=== PATIENT | female | born 1965 | race Caucasian/White ===

== ENCOUNTER → 2021-04-05 00:01 | Outpatient (BNVA) | payer SELFPAY | PROVIDERS: PCP Family Medicine; Visit Provider Family Medicine | DX: L02.419 Cutaneous abscess of limb, unspecified (principal) | CPT/HCPCS: 80053; 85025; 85651; 86140 ==

== ENCOUNTER → 2021-04-09 09:56 | Outpatient (BNVA) | payer SELFPAY | PROVIDERS: PCP Family Medicine; Visit Provider Nurse Practitioner Family | DX: L02.419 Cutaneous abscess of limb, unspecified (principal) | CPT/HCPCS: 86000; 86618; 86666; 86757; 87801 ==

== ENCOUNTER 2021-04-16 12:27 | Outpatient (CLI) | payer SELFPAY ==
--- NOTE | 2021-04-16 12:30 | CT_ITS ---
WS: [id number] CT CHEST WITH INTRAVENOUS CONTRAST HISTORY: L02.419 - Cutaneous abscess of limb, unspecified TECHNIQUE: Contiguous 5 mm axial imaging performed on the thorax. Coronal and sagittal reformats are submitted. All CT scans at [facility] use at least one of these dose optimization techniques: automated exposure control; mA and/or kV adjustment per patient size (includes targeted exams where dose is matched to clinical indication); or iterative reconstruction. CONTRAST: Omnipaque 350; 95 mL IV. DLP: 880.75 mGy.cm COMPARISON: None available. Lungs and central airway: Normal. Pleura: Normal. No pleural effusion. Heart and pericardium: Normal size heart with no pericardial effusion. Mediastinum and maryjo: No mediastinum or hilar adenopathy. Vessels: Normal size aortic and pulmonary artery. No coronary artery calcifications. Chest wall and lower neck: Infiltrating probably infectious process in the soft tissues over the LEFT lateral chest into the axilla. This process measures at least 10.6 x 5.7 cm and extends from the sup erficial soft tissues in the axilla to encase portion of the pectoralis muscle and extends into the a xilla. There are adjacent small reactive lymph nodes which have increased in size and number. There i s no focal well formed abscess. There are a few small foci of air within the soft tissue infiltration which may be from debridement or gas producing organism. Upper abdomen: Large simple LEFT renal cyst measures 6.7 x 7.0 cm. Osseous structures: Prior LEFT rotator cuff repair. No destructive bone lesions. CT/CT chest w con* [id number] IMPRESSION: 1. Soft tissue infiltration in the LEFT axilla extending towards the LEFT ches t wall is probably a focal area of cellulitis. No well formed abscess. There ar e a few small foci of air which could be from debridement or bacteria producing organism. 2. Mild reactive LEFT axillary adenopathy. 3. No pneumonia. 4. Large LEFT renal cyst.
[2021-04-16] MEDS: iohexol 350 mg/mL 100 mL Btl IV (12:54)
== END 2021-04-16 12:28 | disposition home or self-care (01) ==
LOC: RAD 12:29
PROVIDERS: PCP Family Medicine; Visit Provider Surgery
DX: L02.419 Cutaneous abscess of limb, unspecified (principal); Q61.01 Congenital single renal cyst
CPT/HCPCS: 71260

== ENCOUNTER → 2021-04-17 11:35 | Outpatient (BNVA) | payer OTHER, SELFPAY | PROVIDERS: PCP Family Medicine; Visit Provider Surgery | DX: Z20.822 Contact with and (suspected) exposure to COVID-19 (principal); L02.419 Cutaneous abscess of limb, unspecified | CPT/HCPCS: 87635 ==

== ENCOUNTER 2021-04-23 07:46 | Day surgery (SDC) | payer SELFPAY ==
[2021-04-20 17:23] VITALS: BMI 31.1
[2021-04-23] VITALS (8 sets, daily range): BP systolic 107–135; BP diastolic 57–80; PULSE 63–71; RESP 14–19; TEMP 36.1–36.7; O2SAT 98–100
[2021-04-23] MEDS: sodium chloride 0.9% 1,000 ML 30 ML IV (08:26)
[2021-04-23] MEDS: acetaminophen 1,000 MG/100 ML PIGGYBACK 400 MG IV (08:27)
--- NOTE | 2021-04-23 09:52 | W.PM.OPSUD ---
Surgery/Procedure H&P Update DATE OF PROCEDURE: April 23, 2021 DATE H&P PERFORMED: 04/16/21 H&P UPDATE INFORMATION: I have reviewed H&P completed within last 30 days, I have examined patient prior to procedure and Changes to prior documentation as noted here CHANGES TO PREVIOUS DOCUMENTATION: 1. Soft tissue infiltration in the LEFT axilla extending towards the LEFT chest wall is probably a focal area of cellulitis. No well formed abscess. There are a few small foci of air which could be from debridement or bacteria producing organism. 2. Mild reactive LEFT axillary adenopathy. 3. No pneumonia. 4. Large LEFT renal cyst. PREOP DIAGNOSIS: Left axilla abscess PRIMARY INDICATION FOR PROCEDURE: The same PLANNED PROCEDURE: Operation Date: 04/23/21 08:55 Proposed Procedures p Incision And Drainage of axillary abscess 17529 L02.419(Not Applicable) - Jose Alfredo Reeves MD
[2021-04-23] MEDS: clindamycin 900 MG/50 ML PREMIX 100 MG IV (10:12)
--- NOTE | 2021-04-23 10:24 | ANES.PREANE2 ---
Pre-Anesthetic Assessment Pre-Anesthetic Assessment: Height/Weight: Height 1.68 m Weight 87.543 kg Temp Pulse Resp BP Pulse Ox 97 F L 71 18 126/64 100 04/23/21 08:06 04/23/21 08:06 04/23/21 08:06 04/23/21 08:06 04/23/21 08:06 Preop Diagnosis: Left axilla abscess Proposed Procedure: Operation Date: 04/23/21 08:55 Proposed Procedures p Incision And Drainage of axillary abscess [id number] L02.419(Not Applicable) - Jose Alfredo Reeves MD Was Beta Jair taken within 24 hours: N/A Was Clonidine taken within 24 hours: N/A Last intake: Intake Last Liquid Date 04/22/21 Last Liquid Time 20:30 Last Solid Date 04/22/21 Last Solid Time 20:30 Social: Social History: Tobacco and No alcohol Exam: Pre-Anes Outpt Exam: alert, oriented x 3 and regular rate & rhythm Airway: Submandibular: WNL Cervical ROM: WNL MP: 2 Dentition: False (uppers) Pulmonary: Pulmonary: COPD Metabolic: Metabolic: Morbid obesity Anesthetic Plan: ASA status: 3 Anesthesia: General Risk of > 500 ml blood loss (7ml/kg in children): No Meds/Allergies Current Medications: Current Medications Generic Name Dose Route Start Last Admin Trade Name Freq PRN Reason Stop Dose Admin Sodium Chloride 1,000 mls @ 30 ml s/hr 04/23/21 08:00 04/23/21 08:26 Sodium Chloride 0.9% IV 04/24/21 07:59 30 mls/hr .Q24H SONJA Administration PFSH Anesthesia PFSH: Social History Smoking and tobacco status: current every day smoker Data Anesthesia Cardiac Studies: No Data to Display
[2021-04-23] MEDS: lidocaine 2% INJ 20 mL INJECTION (10:42)
--- NOTE | 2021-04-23 10:57 | PM.OP ---
Operative Report Date of procedure: April 23, 2021 Pre-op Diagnosis: Left axilla abscess Post-op diagnosis: same Procedure Done: 1-Incision and drainage of left axillary abscess 2-Sharp and excisional debridement of left axillary abscess cavity Implants: Small piece of Surgicel followed by packing with Kerlix wet-to-dry using lidocaine 2% Specimens removed/disposition: Abscess wall sent for pathology Tissues from the abscess cavity sent for cultures and sensitivities Surgeon: Jose Alfredo Reeves Automatic Casting Machine Operator: Surgical techpraveen Arias LG Circulating nurse Sherry Anesthesia: General (LMA solution professional Vladimir) Estimated blood loss (mL): 5 Condition: stable Disposition: same day Procedure: After identifying the patient holding area, the left Axilla was marked before the procedure by myself, in the presence of female insurance agents supervisor nursing staff Juana Santizo. Patient was then taken to the operative suite, was placed in supine position, LMA was placed by the anesthesia provider, prophylactic IV antibiotics were given per protocol, left arm was placed in 90? to her body, prep and drape of the left pectoralis including the left axilla region was done under the usual sterile technique. Time-out was done verifying the patient's name/date of /planned procedure and destination after the procedure, all were in agreement. After palpation of the left axillary abscess I did add transverse and elliptical incision on top of the most indurated and necrotic tissues, all was taken out as there was evidence of cavitation underneath the necrotic tissues. Sharp and excisional debridement was done of the necrotic tissues likely the patient has an underlying hidradenitis suppurativa. Abscess wall tissues were sent for cultures and sensitivities and tissues were sent for permanent pathology. Predebridement measurements 1 x 1.2 x 0.1 cm Post debridement measurements 4.3 x 1.5 x [address] to the subcutaneous layer Copious and thorough irrigation with warm saline was done using 3 L of Pulsavac, followed by appropriate hemostasis that was completed by small piece of Surgicel, Kerlix impregnated and lidocaine 2% was used to pack the abscess cavity Dry dressing was then applied, followed by sports bra and fluffs. Patient tolerated the procedure well, count of instruments and sponges were completed at the end of the procedure. And then patient was taken to the recovery area in stable condition. I Was present for the whole entire procedure
--- NOTE | 2021-04-23 11:09 | P.PCN_ITS ---
PACU note PACU note: VSS, Good respiratory effort, report to FEEDER/FOLDER Post-Anesthesia Exam: awake
--- NOTE | 2021-04-23 11:09 | PM.PACU ---
PACU note PACU note: VSS, Good respiratory effort, report to PROCESS CONTROL PROGRAMMER Post-Anesthesia Exam: awake
--- NOTE | 2021-04-23 12:12 | SUR.PHASEII ---
1155-Report given to ZAHIDA Gomez to complete Phase 2 recovery on patient. ZAHIDA [place]
[2021-04-23] MEDS: HYDROcodone-acetaminophen 5-325 mg Tablet 1 TAB PO (12:15)
--- NOTE | 2021-04-23 17:03 | ANE.PACU2 ---
Inpatient post-anesthesia follow up: Airway intact: Yes Vital signs: Temperature 97.8 F Pulse Rate 69 Respiratory Rate 18 Blood Pressure 115/80 Pulse Oximetry 99 Oxygen Delivery Me thod Room Air Oxygen Flow Rate Fraction of Inspir ed Oxygen Hydration adequate: Yes Nausea and vomiting: No Pain level: 2 Mental status: Baseline
== END 2021-04-23 12:55 | disposition home or self-care (01) ==
PROVIDERS: PCP Family Medicine; Visit Provider Surgery
PROC: (CPT 11042; principal; 2021-04-23 08:55)
DX: L02.412 Cutaneous abscess of left axilla (principal); F17.200 Nicotine dependence, unspecified, uncomplicated; Z88.0 Allergy status to penicillin
CPT/HCPCS: 11042; 87070; 87176; 87205; 88304; 88307; 96365; J2704; J3010; J3490; J7030

== ENCOUNTER 2021-04-27 13:18 | Outpatient (CLI) | payer SELFPAY | END 2021-04-27 13:19 | disposition home or self-care (01) | LOC: WOUND 13:20 | PROVIDERS: PCP Family Medicine; Visit Provider Surgery | DX: T81.89XA Other complications of procedures, not elsewhere classified, initial encounter (principal); Y83.8 Other surgical procedures as the cause of abnormal reaction of the patient, or of later complication, without mention of misadventure at the time of the procedure; F17.210 Nicotine dependence, cigarettes, uncomplicated | CPT/HCPCS: 11042; G0463 ==

== ENCOUNTER 2021-05-11 13:07 | Outpatient (CLI) | payer SELFPAY | END 2021-05-11 13:08 | disposition home or self-care (01) | LOC: WOUND 13:10 | PROVIDERS: PCP Family Medicine; Visit Provider Surgery | DX: I96 Gangrene, not elsewhere classified (principal); T81.89XA Other complications of procedures, not elsewhere classified, initial encounter; Y83.8 Other surgical procedures as the cause of abnormal reaction of the patient, or of later complication, without mention of misadventure at the time of the procedure; F17.210 Nicotine dependence, cigarettes, uncomplicated | CPT/HCPCS: 11042 ==

== ENCOUNTER 2021-05-18 09:49 | Outpatient (CLI) | payer SELFPAY | END 2021-05-18 09:50 | disposition home or self-care (01) | LOC: WOUND 09:50 | PROVIDERS: PCP Family Medicine; Visit Provider Nurse Practitioner Family | DX: T81.89XA Other complications of procedures, not elsewhere classified, initial encounter (principal); Y83.8 Other surgical procedures as the cause of abnormal reaction of the patient, or of later complication, without mention of misadventure at the time of the procedure; F17.210 Nicotine dependence, cigarettes, uncomplicated | CPT/HCPCS: 11042 ==

== ENCOUNTER 2021-05-25 09:35 | Outpatient (CLI) | payer SELFPAY | END 2021-05-25 09:36 | disposition home or self-care (01) | LOC: WOUND 09:35 | PROVIDERS: PCP Family Medicine; Visit Provider Surgery | DX: T81.89XA Other complications of procedures, not elsewhere classified, initial encounter (principal); Y83.8 Other surgical procedures as the cause of abnormal reaction of the patient, or of later complication, without mention of misadventure at the time of the procedure; F17.210 Nicotine dependence, cigarettes, uncomplicated | CPT/HCPCS: 11042 ==

== ENCOUNTER 2021-06-15 14:07 | Outpatient (CLI) | payer SELFPAY | END 2021-06-15 14:08 | disposition home or self-care (01) | LOC: WOUND 14:08 | PROVIDERS: PCP Family Medicine; Visit Provider Surgery | DX: I96 Gangrene, not elsewhere classified (principal); T81.89XA Other complications of procedures, not elsewhere classified, initial encounter; Y83.8 Other surgical procedures as the cause of abnormal reaction of the patient, or of later complication, without mention of misadventure at the time of the procedure; F17.210 Nicotine dependence, cigarettes, uncomplicated | CPT/HCPCS: 11042 ==

== ENCOUNTER 2021-06-29 10:33 | Outpatient (CLI) | payer SELFPAY | END 2021-06-29 10:34 | disposition home or self-care (01) | LOC: WOUND 10:33 | PROVIDERS: PCP Family Medicine; Visit Provider Nurse Practitioner Family | DX: I96 Gangrene, not elsewhere classified (principal); T81.89XA Other complications of procedures, not elsewhere classified, initial encounter; Y83.8 Other surgical procedures as the cause of abnormal reaction of the patient, or of later complication, without mention of misadventure at the time of the procedure; F17.210 Nicotine dependence, cigarettes, uncomplicated | CPT/HCPCS: 11042; A6212 ==

== ENCOUNTER 2021-07-06 14:23 | Outpatient (CLI) | payer SELFPAY | END 2021-07-06 14:24 | disposition home or self-care (01) | LOC: WOUND 14:24 | PROVIDERS: PCP Family Medicine; Visit Provider Surgery | DX: Z09 Encounter for follow-up examination after completed treatment for conditions other than malignant neoplasm (principal); F17.210 Nicotine dependence, cigarettes, uncomplicated | CPT/HCPCS: 99212 ==

== ENCOUNTER 2024-09-03 08:41 | Outpatient (CLI) | payer OTHER, SELFPAY ==
--- NOTE | 2024-09-03 08:44 | MM_ITS ---
WS: [id number] BILATERAL SCREENING DIGITAL TOMOSYNTHESIS MAMMOGRAM WITH CAD HISTORY: SCREENING COMPARISON: None. Bilateral CC and MLO views with tomosynthesis and synthetic mammography submitted. Computer aided detection analyzed. Breast composition: The breasts are heterogeneously dense, which may obscure small masses. No suspicious masses, microcalcifications or architectural distortion. Scattered asymmetries. No suspicious mass or grouping of calcification. MM/MM scr tomosynthesis [id number] IMPRESSION: BI-RADS: 2 - Benign FOLLOW UP: 1 Year Follow-up
== END 2024-09-03 08:42 | disposition home or self-care (01) ==
LOC: RAD 08:43
PROVIDERS: PCP Nurse Practitioner Family; Visit Provider Nurse Practitioner Family
DX: Z12.31 Encounter for screening mammogram for malignant neoplasm of breast (principal); R92.333 Mammographic heterogeneous density, bilateral breasts; N64.89 Other specified disorders of breast
CPT/HCPCS: 77063; 77067

== ENCOUNTER 2024-12-07 09:21 | Outpatient (CLI) | payer OTHER, SELFPAY ==
--- NOTE | 2024-12-07 09:38 | US_ITS ---
WS: [id number] RIGHT UPPER QUADRANT ULTRASOUND HISTORY: ELEVATED LIVER ENZYMES COMPARISON: 04/16/2021 Liver: 15.7 cm in length. Normal size liver and echogenicity. No bile duct dilatation or mass. Portal Vein: Normal hepatopetal flow with monophasic waveform. Gallbladder: Ringdown artifact from the gallbladder with no stones identified. No wall thickening. CBD: 0.2 cm Pancreas: Normal size and echogenicity. Right kidney: 11.2 cm in length. Normal size and echogenicity. No hydronephrosis or mass. Aorta and IVC: Unremarkable abdominal aorta and IVC. No ascites. US/US abdomen limited [id number] IMPRESSION: 1. Adenomyomatosis. No cholelithiasis. 2. Normal size liver. 3. Negative RIGHT kidney.
== END 2024-12-07 09:22 | disposition home or self-care (01) ==
PROVIDERS: PCP Nurse Practitioner Family; Visit Provider Nurse Practitioner Family
DX: R74.8 Abnormal levels of other serum enzymes (principal); K82.8 Other specified diseases of gallbladder
CPT/HCPCS: 76705